=== PATIENT | female | born 1995 | race African-American/Black ===

== ENCOUNTER 2022-02-22 23:58 | Emergency (ER) | payer SELFPAY ==
[2022-02-23] MEDS ORDERED: Ondansetron 4 MG/2 ML SDV IVPUSH ONE (00:07)
[2022-02-23] MEDS ORDERED: Sodium Chloride 0.9% 10 ML Syringe FLUSH PRN (00:07)
[2022-02-23] MEDS ORDERED: Sodium Chloride 0.9% 1,000 ML IV SCH (00:15)
[2022-02-23 00:41] LABS: ESTIMATED GFR 128 mL/min (>60)
[2022-02-23] MEDS ORDERED: Iopamidol 612 MG/ML 100 ML Bottle IV PRN (01:24)
[2022-02-23] MEDS ORDERED: Sodium Chloride 0.9% 100 ML IV SCH (01:30)
[2022-02-23] MEDS ORDERED: cefTRIAXone 1 GM in Sodium Chloride 0.9% 50 ML IV ONE (02:13)
== END 2022-02-23 03:30 | disposition home or self-care (01) ==
LOC: JP.ED 23:58
DX: R10.84 Generalized abdominal pain (principal); N30.00 Acute cystitis without hematuria; R11.2 Nausea with vomiting, unspecified; Z20.822 Contact with and (suspected) exposure to COVID-19
CPT/HCPCS: 36415; 74177; 80053; 80305; 80307; 81001; 81025; 83690; 85025; 87086; 87635; 96361; 96365; 96375; 99284; J0696; J2405; J3490; J7030; Q9967; U0002

== ENCOUNTER 2022-02-24 00:03 | Emergency (ER) | payer SELFPAY ==
[2022-02-24] MEDS ORDERED: diphenhydrAMINE 25 MG Cap PO ONE (01:18)
[2022-02-24] MEDS ORDERED: Prochlorperazine 10 MG Tab PO ONE (01:18)
[2022-02-24] MEDS ORDERED: diphenhydrAMINE 50 MG/ML SDV IVPUSH ONE (01:19)
[2022-02-24] MEDS ORDERED: Prochlorperazine 10 MG/2 ML SDV IVPUSH ONE (01:19)
== END 2022-02-24 02:35 | disposition home or self-care (01) ==
LOC: JP.ED 00:03
DX: N30.00 Acute cystitis without hematuria (principal); R11.2 Nausea with vomiting, unspecified; Z72.0 Tobacco use
CPT/HCPCS: 36415; 85025; 96374; 96375; 99284; J0780; J1200